=== PATIENT | male | born 1980 | race Caucasian/White ===

== ENCOUNTER → 2018-07-16 09:08 | Outpatient (CLI) | payer MEDICARE, BC, SELFPAY ==
--- NOTE | 2018-07-16 09:09 | US_ITS ---
US abdomen complete HISTORY: Right upper quadrant pain ITS.REASON: Abd pain ORDERING PHYSICIAN: Kayode Adame PATIENT AGE: 38 years COMPARISON: None FINDINGS: PANCREAS:Unremarkable. No obvious mass or abnormal fluid collection. No ductal dilatation LIVER:No focal liver lesions demonstrated. Homogeneous echogenicity. No intrahepatic biliary ductal dilatation evident. There is some heterogeneous areas of increased echogenicity consistent with fatty liver involvement RIGHT KIDNEY:Unremarkable. Normal size and echogenicity. No hydronephrosis LEFT KIDNEY:Unremarkable. No hydronephrosis. Normal size and echogenicity. GALLBLADDER:Sludge is present in the gallbladder. No shadowing stones, pericholecystic fluid, gallbladder wall thickening, or biliary dilatation AORTA:No evidence of aneurysmal dilatation. SPLEEN:Mild splenomegaly at 15 cm ASCITES:None demonstrated. IMPRESSION: 1. Gallbladder sludge. No shadowing stones. 2. Mild splenomegaly
== END ==
PROVIDERS: PCP Emergency Medicine; Visit Provider Nurse Practitioner Family
DX: R10.9 Unspecified abdominal pain (principal)
CPT/HCPCS: 76700

== ENCOUNTER → 2019-10-26 15:33 | Outpatient (CLI) | payer MEDICARE, BC, SELFPAY ==
[2019-10-26 15:47] LABS: Basophils # 0.1 K/mm3 (0-0.2); Basophils % 1.5 % (0.1-2.0); Eosinophils # 0.1 K/mm3 (0.0-0.4); Eosinophils % 2.8 % (0.1-12.0); Hematocrit 49.6 % (42.0-52.0); Hemoglobin 16.8 g/dL (14.1-18.0); Lymphocytes # 1.9 K/mm3 (0.7-4.5); Lymphocytes % 37.8 % (10-50); Mean Corpuscular HGB Conc 33.9 g/dL (31.8-35.4); Mean Corpuscular Hemoglobin 32.6 pg (27.0-31.2); Mean Corpuscular Volume 96.1 fl (80-94); Monocytes # 0.3 K/mm3 (0.1-1.0); Monocytes % 6.1 % (1.7-9.3); Neutrophils # 2.6 K/mm3 (1.8-7.8); Neutrophils % 51.9 % (37.0-80.0); Platelet Count 87 K/mm3 (142-424); Red Blood Count 5.16 M/mm3 (4.60-6.20); Red Cell Distribution Width 13.4 % (11.5-17.5)
[2019-10-26 16:05] LABS: Alanine Aminotransferase 181 U/L (12-78); Albumin Level 5.4 g/dl (3.5-5.0); Albumin/Globulin Ratio 1.2 (1.1-1.8); Alkaline Phosphatase 105 U/L (38-126); Anion Gap 12.8 mEq/L (5-15); Aspartate Amino Transferase 137 U/L (17-59); Bilirubin,Total 0.8 mg/dl (0.2-1.3); Blood Urea Nitrogen 9 mg/dl (9-20); Calcium 9.7 mg/dl (8.4-10.2); Carbon Dioxide 28 mmol/L (22.0-30.0); Chloride 102 mmol/L (98-107); Chol/HDL Ratio 4.3 (1-3.5); Cholesterol 213 mg/dl (140-200); Estimated Glomerular Filt Rate 124 ml/min (>60); GFR (African American) 150 ML/MIN (>60); Globulin 4.5 g/dL (1.3-3.2); Glucose 116 mg/dl (74-100); HDL Cholesterol 50 mg/dl (40-60); Potassium 3.8 mmoL/L (3.5-5.1); Sodium 139 mmol/L (136-145); Total Protein,Serum 9.9 g/dl (6.3-8.2); Triglycerides 128 mg/dl (30-150); VLDL Cholesterol 26 mg/dL (0-40)
[2019-10-26 16:36] LABS: Thyroid Stimulating Hormone 2.48 uIU/mL (0.465-4.68)
[2019-10-28 20:31] LABS: Vitamin D 25 Hydroxy 21.5 ng/mL (30.0-100.0)
== END ==
PROVIDERS: Visit Provider Nurse Practitioner Family
DX: R10.9 Unspecified abdominal pain (principal); Z01.89 Encounter for other specified special examinations; R53.83 Other fatigue; E66.9 Obesity, unspecified; E55.9 Vitamin D deficiency, unspecified
CPT/HCPCS: 80053; 80061; 82652; 84436; 84443; 85025

== ENCOUNTER → 2019-11-11 07:47 | Outpatient (CLI) | payer MEDICARE, BC, SELFPAY ==
--- NOTE | 2019-11-11 07:47 | US_ITS ---
PROCEDURE: US GALLBLADDER CLINICAL INDICATION: RUQ Pain COMPARISON: No exams were available for comparison FINDINGS: Pancreas: Unremarkable/Not well seen Liver: Unremarkable. There is appropriate direction of blood flow within a non dilated portal vein. Right kidney: Unremarkable appearing. No hydronephrosis. Gallbladder: Gallbladder is contracted with mildly thickened wall. No gallstones, pericholecystic fluid, or biliary dilatation is evident. The gallbladder wall measures 5 mm. IMPRESSION: Contracted gallbladder with mildly thickened wall otherwise negative right upper quadrant ultrasound Dictated by: Chidi Khoury MD 11/11/2019 16:42 Electronically signed by Chidi Khoury MD in [place] 11/11/2019 16:42
== END ==
PROVIDERS: PCP Emergency Medicine; Visit Provider Nurse Practitioner Family
DX: R10.11 Right upper quadrant pain (principal)
CPT/HCPCS: 76705

== ENCOUNTER 2019-11-16 20:36 | Emergency (ER) | payer MEDICARE, BC, SELFPAY ==
[2019-11-16 20:37] VITALS: BP 139/71; PULSE 60; RESP 16; TEMP 36.8; O2SAT 98; BMI 29.9
[2019-11-16 21:06] VITALS: PULSE 65; RESP 16; O2SAT 100; BMI 29.9
[2019-11-16 21:17] VITALS: BP 139/71; PULSE 65; RESP 16; TEMP 36.8; O2SAT 100
== END 2019-11-16 21:18 | disposition home or self-care (01) ==
PROVIDERS: Emergency Provider Nurse Practitioner; PCP Emergency Medicine
DX: Z53.21 Procedure and treatment not carried out due to patient leaving prior to being seen by health care provider (principal); R11.0 Nausea

== ENCOUNTER → 2020-01-10 15:54 | Outpatient (CLI) | payer MEDICARE, BC, SELFPAY ==
[2020-01-10 16:48] LABS: Basophils % 0.4 % (0.1-2.0); Eosinophils # 0.1 K/mm3 (0.0-0.4); Eosinophils % 1.5 % (0.1-12.0); Hematocrit 41.9 % (42.0-52.0); Hemoglobin 14.8 g/dL (14.1-18.0); Lymphocytes # 2.2 K/mm3 (0.7-4.5); Mean Corpuscular HGB Conc 35.4 g/dL (31.8-35.4); Mean Corpuscular Hemoglobin 33.8 pg (27.0-31.2); Mean Corpuscular Volume 95.6 fl (80-94); Mean Platelet Volume 8.5 fl (7.4-10.4); Monocytes # 0.6 K/mm3 (0.1-1.0); Neutrophils # 5.2 K/mm3 (1.8-7.8); Neutrophils % 64.1 % (37.0-80.0); Platelet Count 135 K/mm3 (142-424); Red Blood Count 4.39 M/mm3 (4.60-6.20); Red Cell Distribution Width 12.8 % (11.5-17.5); White Blood Count 8.2 K/mm3 (4.8-10.8)
[2020-01-10 17:27] LABS: Alanine Aminotransferase 38 U/L (12-78); Albumin Level 4.2 g/dl (3.5-5.0); Albumin/Globulin Ratio 1.1 (1.1-1.8); Alkaline Phosphatase 109 U/L (38-126); Amylase 69 U/L (30-110); Anion Gap 16.3 mEq/L (5-15); Aspartate Amino Transferase 41 U/L (17-59); Blood Urea Nitrogen 8 mg/dl (9-20); Calcium 8.7 mg/dl (8.4-10.2); Carbon Dioxide 30 mmol/L (22.0-30.0); Chloride 96 mmol/L (98-107); Estimated Glomerular Filt Rate 183 ml/min (>60); GFR (African American) 222 ML/MIN (>60); Globulin 3.9 g/dL (1.3-3.2); Glucose 90 mg/dl (74-100); Lipase 78 U/L (23-300); Potassium 4.3 mmoL/L (3.5-5.1); Sodium 138 mmol/L (136-145); Total Protein,Serum 8.1 g/dl (6.3-8.2)
[2020-01-10 17:40] LABS: Free T4 (Free Thyroxine) 1.48 ng/dl (0.78-2.19)
[2020-01-12 10:15] LABS: Hep A Ab, IgM Negative (Negative); Hep A Ab, Total Negative (Negative); Hep B Core Ab, Total Positive (Negative)
[2020-01-12 11:20] LABS: Hep B Surface Ab, Qual Non Reactive (.)
== END ==
PROVIDERS: Visit Provider Emergency Medicine
DX: E07.9 Disorder of thyroid, unspecified (principal); R10.9 Unspecified abdominal pain
CPT/HCPCS: 36415; 80053; 82150; 83690; 84439; 85025; 86704; 86706; 86708; 87522

== ENCOUNTER → 2020-01-16 10:17 | Outpatient (CLI) | payer MEDICARE, BC, SELFPAY ==
--- NOTE | 2020-01-16 10:42 | HMH.ITSHM ---
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 []PANTOPRAZOLE LEVETIRACETAM GABAPENTIN DOCUSATE VITAMIN D3 BUPRENORPHINE
== END ==
PROVIDERS: PCP Emergency Medicine; Visit Provider Emergency Medicine
DX: R10.11 Right upper quadrant pain (principal)

== ENCOUNTER 2020-01-18 11:20 | Emergency (ER) | payer MEDICARE, BC, SELFPAY ==
[2020-01-18 11:35] VITALS: BMI 30.2
--- NOTE | 2020-01-18 11:36 | CT_ITS ---
PROCEDURE: CT ABDOMEN PELVIS W CON CLINICAL INDICATION: abd pain Right-sided abdominal COMPARISON: CT ABDPELWO CT abdomen pelvis wo con from 07/10/2018 US US GALLBLADDER from 11/11/2019 TECHNIQUE: IV Contrast: 75ML OPTIRAY 350 Oral Contrast None Axial images obtained with sagittal and coronal reformats. All CT scans at the facility use one or more dose reduction, viz: automated exposure control, ma/kV adjustment per patient size (including targeted exams where dose is matched to indication, i.e. head), or iterative reconstruction technique. FINDINGS: LOWER THORAX: There are atelectatic changes in the right lung base with consolidation in the right lower lobe posteriorly consistent with pneumonia. Minimal atelectasis also noted in the left lower lobe ABDOMEN & PELVIS: The liver, gallbladder, spleen, adrenal glands, pancreas, and kidneys have an unremarkable appearance. There are scattered mildly prominent lymph nodes in the upper abdomen in the perigastric region which measure up to 1.5 by 1 cm. Periportal nodes are present and measure up to 2.4 x 1.5 cm. The pancreas has an unremarkable appearance. No evidence of appendicitis. There is a mild amount of retained colonic feces. There are fluid-filled loops of small bowel which are nondistended. This is nonspecific and could be seen with enteritis. No pelvic mass or abnormal fluid collection. No acute bony findings. IMPRESSION: 1. Periportal adenopathy. Etiology is undetermined lymphoma, metastatic disease, or inflammatory/reactive process is considered. Follow-up is suggested. 2. Right lower lobe pneumonia. 3. Possible enteritis Dictated by: Chidi Khoury MD 01/18/2020 12:52 Chidi Khoury MD in [place] 01/18/2020 12:52
[2020-01-18 11:37] VITALS: BP 141/89; PULSE 75; RESP 17; TEMP 36.9; O2SAT 98; BMI 30.2
--- NOTE | 2020-01-18 11:37 | PC.NURSE ---
notified rad of CT order with IV contrast, spoke with Rosmery
[2020-01-18 11:40] LABS: Microscopic, Urine URINE MICROSCOPIC (MICROSCOPIC)
[2020-01-18 11:43] LABS: Appearance,Urine CLEAR (Clear); Bilirubin,Urine Negative (Negative); Blood, Urine Negative (Negative); Color,Urine YELLOW (Yellow); Glucose,Urine (UA) Negative (Negative); Ketones,Urine Negative (Negative); Leukocyte Esterase,Urine Negative (Negative); Nitrate,Urine Negative (Negative); PH,Urine 7.5 (5.0-8.5); Protein,Urine Negative (Negative)
--- NOTE | 2020-01-18 11:59 | PC.NURSE ---
pt to radiology
--- NOTE | 2020-01-18 12:00 | HMH.EDABDPAI ---
ED Disposition Clinical Impression: Abdominal pain Qualifiers: Abdominal location: right lower quadrant Qualified Code(s): R10.31 - Right lower quadrant pain Pneumonia Qualifiers: Pneumonia type: due to unspecified organism Laterality: right Lung location: lower lobe of lung Qualified Code(s): J18.9 - Pneumonia, unspecified organism Disposition: Home, Self-Care Condition on Discharge: Fair Instructions: DI for Acute Abdomen, Pneumonia-Adult Additional Instructions: work-up showed normal CBC and CMP however CRP is elevated at 80.3; urinalysis is negative; CT of the abdomen and pelvis showed right lower lobe pneumonia and periportal adenopathy; etiology is undetermined lymphoma with metastatic disease or inflammatory/reactive processes to be considered; spoke to Dr. Gaines and is advised that you may go home and to follow-up with Dr. Gaines on Thursday will prescribe Levaquin as there is suspicion of right lower lobe pneumonia Prescriptions: levoFLOXacin [Levaquin 500mg tab] 500 mg PO DAILY #7 tab Transmission Status: Pending to [facility] Referrals: Freddy Gaines MD [Primary Care Provider] - Forms: Work/School Release Time of Disposition: 14:20 - Critical Care Critical Care Time: No Attestation: On 01/18/20, the high probability of a clinically significant, sudden or life threatening deterioration of the following system(s) required my full and direct attention, intervention and personal management. The time I documented below is in addition to time spent performing reported procedures but includes the following listed in this critical care notation. Medical Decision Making - Medical Records Medical records reviewed: Yes: I reviewed the patient's medical records. MR Comment: Complaint of right lower quadrant quadrant abdominal pain for several months work-up showed normal CBC and CMP however CRP is elevated at 80.3; urinalysis is negative; CT of the abdomen and pelvis showed right lower lobe pneumonia and periportal adenopathy; etiology is undetermined lymphoma with metastatic disease or inflammatory/reactive processes to be considered; spoke to Dr. Gaines and is advised that he he may go home and to follow-up with Dr. Gaines on Thursday will prescribe Levaquin as he has suspicion of right lower lobe pneumonia - Juan Jose Inquiry Pt receiving controlled substance: No Vital Signs: 01/18/20 11:37 Temperature 98.4 F Temperature Source Oral Pulse Rate [Right Brachial] 75 Respiratory Rate 17 Blood Pressure [Right Arm] 141/89 H Blood Pressure Mean [Right Arm] 106 02 Sat by Pulse Oximetry 98 Oxygen Delivery Method Room Air - Lab Data Lab results reviewed: Yes: I reviewed the patient's lab results. Lab Results 01/18/20 11:30: Urine Color Yellow, Urine Appearance Clear, Urine pH 7.5, Ur Specific [place] 1.010, Urine Protein Negative, Urine Glucose (UA) Negative, Urine Ketones Negative, Urine Blood Negative, Urine Nitrate Negative, Urine Bilirubin Negative, Urine Urobilinogen 1.0, Ur Leukocyte Esterase Negative, Urine WBC Occasional, Urine Bacteria Trace 01/18/20 12:20: WBC 6.4, RBC 4.39 L, Hgb 14.7, Hct 43.0, MCV 97.9 H, MCH 33.6 H, MCHC 34.3, RDW 12.7, Plt Count 141 L, MPV 8.0, Neut % (Auto) 64.6, Lymph % (Auto) 25.6, Daniels % (Auto) 8.0, Eos % (Auto) 1.2, Baso % (Auto) 0.6, Neut # (Auto) 4.1, Lymph # (Auto) 1.6, [place] # (Auto) 0.5, Eos # (Auto) 0.1, Baso # (Auto) 0.0 01/18/20 12:20: Sodium 138, Potassium 4.0, Chloride 100, Carbon Dioxide 30, Anion Gap 12.0, BUN 6 L, Creatinine 0.60 L, Estimated Creat Clear 189, Estimated GFR 148, Est GFR ( Amer) 180, Glucose 97, Calcium 9.0, Total Bilirubin 0.9, AST 35, ALT 32, Alkaline Phosphatase 103, Total Protein 8.3 H, Albumin 4.1, Globulin 4.2 H, Albumin/Globulin Ratio 1.0 L, Amylase 58, Lipase 52 01/18/20 12:20: Lactate 1.1 01/18/20 12:20: C-Reactive Protein 80.3 H Result diagrams: 01/18/20 12:20 01/18/20 12:20 Orders (Tests/Meds): ED MEDICATIONS G
[2020-01-18 12:13] LABS: Bacteria,Urine Trace /lpf; WBC,Urine Occasional #/hpf (0-3)
[2020-01-18 12:30] LABS: Basophils % 0.6 % (0.1-2.0); Eosinophils # 0.1 K/mm3 (0.0-0.4); Eosinophils % 1.2 % (0.1-12.0); Hemoglobin 14.7 g/dL (14.1-18.0); Lymphocytes # 1.6 K/mm3 (0.7-4.5); Lymphocytes % 25.6 % (10-50); Mean Corpuscular HGB Conc 34.3 g/dL (31.8-35.4); Mean Corpuscular Hemoglobin 33.6 pg (27.0-31.2); Mean Corpuscular Volume 97.9 fl (80-94); Monocytes # 0.5 K/mm3 (0.1-1.0); Neutrophils # 4.1 K/mm3 (1.8-7.8); Neutrophils % 64.6 % (37.0-80.0); Platelet Count 141 K/mm3 (142-424); Red Blood Count 4.39 M/mm3 (4.60-6.20); Red Cell Distribution Width 12.7 % (11.5-17.5); White Blood Count 6.4 K/mm3 (4.8-10.8)
[2020-01-18 12:34] LABS: Chloride 100 mmol/L (98-107); Sodium 138 mmol/L (136-145)
[2020-01-18 12:37] LABS: Alanine Aminotransferase 32 U/L (12-78); Amylase 58 U/L (30-110); Aspartate Amino Transferase 35 U/L (17-59); Blood Urea Nitrogen 6 mg/dl (9-20); Creatinine Clearance Estimated 189 mL/min (50-200); Estimated Glomerular Filt Rate 148 ml/min (>60); GFR (African American) 180 ML/MIN (>60)
[2020-01-18 12:38] LABS: Albumin Level 4.1 g/dl (3.5-5.0); Alkaline Phosphatase 103 U/L (38-126); Bilirubin,Total 0.9 mg/dl (0.2-1.3); Carbon Dioxide 30 mmol/L (22.0-30.0); Globulin 4.2 g/dL (1.3-3.2); Glucose 97 mg/dl (74-100); Lipase 52 U/L (23-300); Total Protein,Serum 8.3 g/dl (6.3-8.2)
[2020-01-18 12:42] LABS: Lactic Acid 1.1 mmol/L (0.7-2.1)
[2020-01-18 14:00] LABS: C-Reactive Protein 80.3 mg/L (0-4)
--- NOTE | 2020-01-18 14:08 | PC.NURSE ---
KEYONA MENDOZA speaking with Dr. Gaines
[2020-01-18 14:39] VITALS: BP 107/73; PULSE 62; RESP 18; TEMP 36.9; O2SAT 98
[2020-01-18 14:40] LABS: Erythrocyte Sedimentation Rate 58 mm/hr (0-15)
[2020-01-23 11:16] LABS: Levetiracetam (Keppra) <1.0 ug/mL (10.0-40.0)
== END 2020-01-18 14:39 | disposition home or self-care (01) ==
PROVIDERS: Emergency Provider Emergency Medicine; PCP Emergency Medicine
DX: J18.9 Pneumonia, unspecified organism (principal); F17.210 Nicotine dependence, cigarettes, uncomplicated; R10.31 Right lower quadrant pain
CPT/HCPCS: 36415; 74177; 80053; 80177; 81001; 82150; 83605; 83690; 85025; 85651; 86140; 99283; Q9967

== ENCOUNTER → 2020-01-19 14:55 | Outpatient (CLI) | payer MEDICARE, BC, SELFPAY ==
--- NOTE | 2020-01-19 15:02 | CT_ITS ---
PROCEDURE: CT ANGIO CHEST CLINCIAL INDICATION: RULE OUT PE Pain on breathing COMPARISON: No exams were available for comparison TECHNIQUE: IV Contrast: 70ML OPTIRAY 350 Axial images obtained with sagittal and coronal reformats. All CT scans at the facility use one or more dose reduction, viz: automated exposure control, ma/kV adjustment per patient size (including targeted exams where dose is matched to indication, i.e. head), or iterative reconstruction technique. FINDINGS: HEART AND MEDIASTINAL STRUCTURES: No evidence of aortic aneurysm, dissection, or pulmonary embolus. There are scattered small nodes in the supraclavicular region, axilla, and mediastinum. LUNGS AND PLEURAL SPACES: There are atelectatic changes in the lung bases. This is more extensive on the right than the left BONY STRUCTURES: There is severe wedge compression changes of T7 with loss of height anteriorly of greater than 50 percent. This may be chronic however, the age is uncertain.. There is mild wedging of T6 and T5. UPPER ABDOMEN: Periportal adenopathy once again noted. ADDITIONAL FINDINGS: No other significant abnormalities. IMPRESSION: 1. No evidence of pulmonary embolus. 2. Bilateral lower lobe atelectatic changes 3. Severe wedging of T7 with mild wedging of T5 and T6 age indeterminate. 4. Periportal adenopathy Dictated by: Chidi Khoury MD 01/19/2020 16:58 Chidi Khoury MD in [place] 01/19/2020 16:58
== END ==
PROVIDERS: PCP Emergency Medicine; Visit Provider Internal Medicine Medical Oncology
DX: R10.11 Right upper quadrant pain (principal)
CPT/HCPCS: 71275; Q9967

== ENCOUNTER 2021-01-07 18:56 | Emergency (ER) | payer MEDICARE, BC, SELFPAY ==
[2021-01-07 19:06] VITALS: BP 158/94; PULSE 63; RESP 16; TEMP 36.5; O2SAT 98; BMI 31.4
--- NOTE | 2021-01-07 19:21 | HMH.EDGENADL ---
ED Disposition Clinical Impression: Cellulitis Qualifiers: Site of cellulitis: extremity Site of cellulitis of extremity: lower extremity Laterality: left Qualified Code(s): L03.116 - Cellulitis of left lower limb Disposition: Home, Self-Care Condition on Discharge: Good Instructions: Cellulitis Additional Instructions: Return to the emergency department if you feel worse in any way. Follow-up with your primary care physician in approximately 5 days if you do not see any improvement. Prescriptions: Sulfamethoxazole/Trimethoprim [Bactrim DS tablet] 2 each PO BID 10 Days #40 tab Transmission Status: Pending to [id number] Referrals: Freddy Gaines MD [Primary Care Provider] - - Critical Care Critical Care Time: No Attestation: On 01/07/21, the high probability of a clinically significant, sudden or life threatening deterioration of the following system(s) required my full and direct attention, intervention and personal management. The time I documented below is in addition to time spent performing reported procedures but includes the following listed in this critical care notation. Medical Decision Making - Medical Records Medical records reviewed: Yes: I reviewed the patient's medical records. - Juan Jose Inquiry Pt receiving controlled substance: No Vital Signs: 01/07/21 19:06 Temperature 97.7 F Temperature Source Oral Pulse Rate [Right] 63 Respiratory Rate 16 Blood Pressure [Right Arm] 158/94 H Blood Pressure Mean [Right Arm] 115 Blood Pressure Source [Right Arm] Automatic Cuff Blood Pressure Position [Right Arm] Sitting 02 Sat by Pulse Oximetry 98 Oxygen Delivery Method Room Air Medical Decision Narrative: The patient's history and physical exam are consistent with a cellulitis of the left knee. The patient will be discharged in stable condition without work-up and with a prescription for Bactrim double strength 2 tablets twice a day for 10 days. General Adult HPI - General Chief complaint: Skin/Abscess/Foreign Body Stated complaint: Pain L knee Time Seen by Provider: 01/07/21 19:21 Mode of Arrival: Ambulatory Limitations: No Limitations Description of Symptoms (Recalled from ER Triage Doc. by RN): Pt has a red swollen area to left knee for three days and more painfull today. - History of Present Illness HPI narrative: The patient presents to the emergency department complaining of left-sided knee pain and redness for the last 2 days. He denies any fevers. He denies any injury. - Related Data Home Medications Medication Instructions Recorded Confirmed buprenorphine HCl 8 mg sublingual 8 mg SUBLINGUAL BID tab 06/05/17 10/16/20 tablet Previous Rx's Medication Instructions Recorded cholecalciferol (vitamin D3) 50 50 mcg PO DAILY #30 cap 10/10/20 mcg (2,000 unit) capsule docusate sodium 100 mg capsule 100 mg PO BID 30 Days #60 cap 10/10/20 gabapentin 600 mg tablet 600 mg PO BID #60 tab 10/10/20 levetiracetam 500 mg tablet See Rx Instructions .ROUTE 10/10/20 .COMPLEX #90 tab pantoprazole 40 mg tablet,delayed See Rx Instructions .ROUTE 10/10/20 release .COMPLEX #90 tab fluticasone propionate 50 1 spray INTRANASAL DAILY #16 g 10/16/20 mcg/actuation nasal spray,suspension [id number] 3.5 4 drp OTIC TID 10 Days #10 ml 10/16/20 mg-10,000 unit/mL-1 % ear drops,susp pseudoephedrine HCl 120 mg 120 mg PO Q12H PRN #20 tab 10/16/20 tablet,extended release Sulfamethoxazole/Trimethoprim 2 each PO BID 10 Days #40 tab 01/07/21 [Bactrim DS tablet] Allergies Allergy/AdvReac Type Severity Reaction Status Date / Time No Known Allergies Allergy Verified 10/16/20 15:00 [facility] History - Hepatitis A Screen Drug use history?: No High risk sexual behaviors?: No History of sexually transmitted infection?: No Currently employed?: No Childcare worker?: No Do you have indoor plumbing?: Yes Do you have electricity?: Yes [facility]
[2021-01-07 19:37] VITALS: BP 125/86; PULSE 63; RESP 18; TEMP 36.5; O2SAT 97
== END 2021-01-07 19:39 | disposition home or self-care (01) ==
PROVIDERS: Emergency Provider Emergency Medicine; PCP Emergency Medicine
DX: L03.116 Cellulitis of left lower limb (principal)
CPT/HCPCS: 99281

== ENCOUNTER 2021-04-26 08:56 | Emergency (ER) | payer MEDICARE, BC, SELFPAY ==
[2021-04-26 08:57] VITALS: BP 115/74; PULSE 67; RESP 18; TEMP 36.6; O2SAT 97; BMI 31.6
[2021-04-26 09:04] VITALS: BP 115/74; PULSE 62; RESP 18; TEMP 36.8; O2SAT 97
[2021-04-26 09:30] VITALS: BP 122/75; PULSE 60; O2SAT 96
--- NOTE | 2021-04-26 10:08 | HMH.EDGENADL ---
ED Disposition Clinical Impression: Abscess of nose Disposition: Home, Self-Care Condition on Discharge: Fair Instructions: DI for Skin Abscess Additional Instructions: Take clindamycin as prescribed. Tylenol or ibuprofen as needed for pain. Warm compresses 20 minutes 4 times a day. Follow-up with the ENT, next week. Call Thursday to make appointment. Return to the emergency department if increasing redness, pain, swelling, or fever. Prescriptions: clindamycin HCL [Clindamycin HCl] 300 mg PO QID #28 cap Transmission Status: Pending to [facility] Referrals: Freddy Gaines MD [Primary Care Provider] - - Critical Care Critical Care Time: No Attestation: On 04/26/21, the high probability of a clinically significant, sudden or life threatening deterioration of the following system(s) required my full and direct attention, intervention and personal management. The time I documented below is in addition to time spent performing reported procedures but includes the following listed in this critical care notation. Medical Decision Making - Juan Jose Inquiry Pt receiving controlled substance: No Vital Signs: 04/26/21 08:57 04/26/21 09:04 04/26/21 09:30 Temperature 97.8 F 98.2 F Temperature Source Oral Oral Pulse Rate 62 60 Pulse Rate [Right Radial] 67 Respiratory Rate 18 18 Blood Pressure 115/74 122/75 Blood Pressure [Right Arm] 115/74 Blood Pressure Mean [Right Arm] 87 Blood Pressure Source Automatic Cuff Blood Pressure Source [Right Arm] Automatic Cuff Blood Pressure Position Sitting Blood Pressure Position [Right Arm] Sitting 02 Sat by Pulse Oximetry 97 97 96 Oxygen Delivery Method Room Air Room Air Room Air Orders (Tests/Meds): ED MEDICATIONS Discontinued Medications Generic Name Dose Route Start Last Admin Trade Name Freq PRN Reason Stop Dose Admin Clindamycin HCl 300 mg 04/26/21 10:30 Clindamycin 150mg Capsule PO 04/26/21 10:31 ONCE ONE Medical Decision Narrative: Discussed treatment with antibiotics versus I&D and antibiotics. I explained the patient I was not convinced that any pus could be obtained given his examination which largely shows induration and no significant fluctuant areas. He is very insistent that an incision and drainage be attempted. General Adult HPI - General Chief complaint: Skin/Abscess/Foreign Body Stated complaint: nose swollen/red sore Time Seen by Provider: 04/26/21 09:15 Mode of Arrival: Ambulatory Limitations: No Limitations Description of Symptoms (Recalled from ER Triage Doc. by RN): pt reports the tip of his nose is sore, red and swollen x4 days. Pt states no known injury. - History of Present Illness HPI narrative: 4-day history of swollen red nose. No fever. No drainage of pus. It started just inside the anterior portion of his left nostril and now involves the tip of his nose as well. - Related Data Home Medications Medication Instructions Recorded Confirmed buprenorphine HCl 8 mg sublingual 8 mg SUBLINGUAL BID tab 06/05/17 04/26/21 tablet Gabapentin 600 mg PO BID 04/26/21 04/26/21 Previous Rx's Medication Instructions Recorded cholecalciferol (vitamin D3) 50 50 mcg PO DAILY #30 cap 02/19/21 mcg (2,000 unit) capsule docusate sodium 100 mg capsule 100 mg PO BID 30 Days #60 cap 02/19/21 fluticasone propionate 50 1 spray INTRANASAL DAILY #16 g 02/19/21 mcg/actuation nasal spray,suspension levetiracetam 500 mg tablet See Rx Instructions .ROUTE 02/19/21 .COMPLEX #90 tab pantoprazole 40 mg tablet,delayed See Rx Instructions .ROUTE 02/19/21 release .COMPLEX #90 tab clindamycin HCL [Clindamycin HCl] 300 mg PO QID #28 cap 04/26/21 Allergies Allergy/AdvReac Type Severity Reaction Status Date / Time No Known Allergies Allergy Verified 02/19/21 10:45 [facility] History - Hepatitis A Screen Drug use history?: No High risk sexual behaviors?: No History
[2021-04-26 11:06] VITALS: BP 122/75; PULSE 60; RESP 18; TEMP 36.8; O2SAT 96
== END 2021-04-26 11:06 | disposition home or self-care (01) ==
PROVIDERS: Emergency Provider Emergency Medicine; PCP Emergency Medicine
DX: J34.0 Abscess, furuncle and carbuncle of nose (principal); F17.210 Nicotine dependence, cigarettes, uncomplicated
CPT/HCPCS: 10060; 99282

== ENCOUNTER 2022-01-14 11:55 | Emergency (ER) | payer MEDICARE, BC, SELFPAY ==
[2022-01-14] VITALS (8 sets, daily range): BP systolic 102–153; BP diastolic 62–89; PULSE 50–68; RESP 16; TEMP 36.6–36.8; O2SAT 95–99; BMI 28.3
--- NOTE | 2022-01-14 12:37 | HMH.EDGENADL ---
ED Disposition Clinical Impression: Mastoiditis, Otitis media Disposition: Home, Self-Care Condition on Discharge: Good Additional Instructions: At this time it was felt you are safe to be discharged from the emergency department. If new or worsening symptoms please do not hesitate to return for continued evaluation. Please take your antibiotics as prescribed. Please follow-up with Dr. Lima. The address is [address] in [facility]. The phone number should you get lost is [phone]. The clinic opens at 7:30 AM. Prescriptions: Amoxicillin/Potassium Clav [Augmentin 500mg tab] 1 tab PO TID 7 Days #21 tab Transmission Status: Pending to [facility] Referrals: Freddy Gaines MD [Primary Care Provider] - - Critical Care Critical Care Time: No Attestation: On 01/14/22, the high probability of a clinically significant, sudden or life threatening deterioration of the following system(s) required my full and direct attention, intervention and personal management. The time I documented below is in addition to time spent performing reported procedures but includes the following listed in this critical care notation. Medical Decision Making - Juan Jose Inquiry Pt receiving controlled substance: No Vital Signs: 01/14/22 11:56 01/14/22 13:30 01/14/22 13:56 Temperature 98.3 F Temperature Source Oral Pulse Rate 68 53 L Pulse Rate [Right] 56 L Respiratory Rate 16 16 Blood Pressure 126/75 126/75 Blood Pressure [Right Arm] 153/89 H Blood Pressure Mean 94 Blood Pressure Mean [Right Arm] 110 Blood Pressure Source Automatic Cuff Blood Pressure Source [Right Arm] Automatic Cuff Blood Pressure Position Sitting Blood Pressure Position [Right Arm] Sitting 02 Sat by Pulse Oximetry 99 98 97 Oxygen Delivery Method Room Air Room Air 01/14/22 14:00 01/14/22 14:30 01/14/22 15:00 Temperature Temperature Source Pulse Rate 51 L 50 L 64 Pulse Rate [Right] Respiratory Rate Blood Pressure 126/81 106/62 L 111/81 Blood Pressure [Right Arm] Blood Pressure Mean 97 79 90 Blood Pressure Mean [Right Arm] Blood Pressure Source Blood Pressure Source [Right Arm] Blood Pressure Position Blood Pressure Position [Right Arm] 02 Sat by Pulse Oximetry 98 95 98 Oxygen Delivery Method 01/14/22 15:30 Temperature Temperature Source Pulse Rate 62 Pulse Rate [Right] Respiratory Rate Blood Pressure 102/73 L Blood Pressure [Right Arm] Blood Pressure Mean 83 Blood Pressure Mean [Right Arm] Blood Pressure Source Blood Pressure Source [Right Arm] Blood Pressure Position Blood Pressure Position [Right Arm] 02 Sat by Pulse Oximetry 97 Oxygen Delivery Method - Lab Data Lab Results 01/14/22 12:40: WBC 6.1, RBC 4.78, Hgb 15.4, Hct 48.3, MCV 100.9 H, MCH 32.1 H, MCHC 31.8, RDW 13.2, Plt Count 124 L, MPV 9.9, Neut % (Auto) 39.2, Lymph % (Auto) 45.3, [place] % (Auto) 9.0, Eos % (Auto) 5.1, Baso % (Auto) 1.5, Neut # (Auto) 2.4, Lymph # (Auto) 2.7, [place] # (Auto) 0.6, Eos # (Auto) 0.3, Baso # (Auto) 0.1 01/14/22 12:40: Sodium 142, Potassium 4.1, Chloride 103, Carbon Dioxide 32 H, Anion Gap 11.1, BUN 6 L, Creatinine 0.60 L, Estimated Creat Clear 173, Estimated GFR 147, Est GFR ( Amer) 178, Glucose 105 H, Calcium 9.1, C-Reactive Protein 3.9 01/14/22 12:40: SARS-CoV-2 (PCR) Not detected, Influenza A Untype (PCR) Not detected, Influenza Type B (PCR) Not detected Result diagrams: 01/14/22 12:40 01/14/22 12:40 Orders (Tests/Meds): ED MEDICATIONS Generic Name Dose Route Start Last Admin Trade Name Freq PRN Reason Stop Dose Admin Vancomycin/PEG/NADA/Lysine/Water 1.5 gm in 300 mls @ 150 mls/hr 01/14/22 16:30 Vancomycin 1.5gm/300ml (Peg) Premix IV 01/14/22 18:29 ONCE ONE Vancomycin HCl 1,000 mg/ 250 mls @ 125 mls/hr 01/15/22 02:00 Sodium Chloride IV 01/29/22 01:59 Q8H SUSU Miscellaneous 1 each 01/14/22 16:30 Vanc
--- NOTE | 2022-01-14 12:38 | CT_ITS ---
FINAL REPORT TECHNIQUE: Thin section axial CT images of the facial bones and sinuses were obtained after the administration contrast. Coronal reformatted images were also obtained. This study was performed with techniques to keep radiation doses as low as reasonably achievable, (ALARA). Individualized dose reduction techniques using automated exposure control or adjustment of mA and/or kV according to the patient's size were employed. CLINICAL HISTORY: RETROARTICULAR PAIN W/ D/C COMPARISON: April 12, 2018 FINDINGS: CT FACIAL BONES/SINUSES WITH CONTRAST There is opacification of the left ethmoid air cells. There is mucosal thickening of the left frontal sinus and mild mucosal thickening in the bilateral maxillary sinuses and left sphenoid sinus. No fluid levels are identified. There is narrowing of the right maxillary sinus ostium secondary to mucosal thickening. There is soft tissue which obstructs the left maxillary sinus ostium and infundibulum. There is a right ino bullosa as a variant. There is leftward nasal septal deviation with a left-sided nasal septal spur. No fracture or acute bony abnormality is identified. There are postoperative changes from left mastoidectomy. There is opacification of the left mastoid antrum and partial opacification of the left middle ear cavity which is new and is worrisome for left mastoiditis/otitis media. There is soft tissue in the bilateral auditory canal of uncertain etiology. IMPRESSION: Sinusitis as described. Opacification of the left mastoid antrum and partial opacification of the left middle ear cavity which is new and worrisome for left mastoiditis/otitis media. Reviewed, Interpreted and Dictated by Harman Shah III, MD Transcribed by Kiersten Sanderson Authenticated and [facility]
[2022-01-14 12:59] LABS: Coronavirus 19, PCR Not Detected (NotDetected); Influenza A, PCR Not Detected (NotDetected); Influenza B, PCR Not Detected (NotDetected)
[2022-01-14 13:26] LABS: Chloride 103 mmol/L (98-107); Potassium 4.1 mmoL/L (3.5-5.1); Sodium 142 mmol/L (136-145)
[2022-01-14 13:27] LABS: Basophils # 0.1 K/mm3 (0-0.2); Basophils % 1.5 % (0.1-2.0); Eosinophils # 0.3 K/mm3 (0.0-0.4); Eosinophils % 5.1 % (0.1-12.0); Hematocrit 48.3 % (42.0-52.0); Hemoglobin 15.4 g/dL (14.1-18.0); Lymphocytes # 2.7 K/mm3 (0.7-4.5); Lymphocytes % 45.3 % (10-50); Mean Corpuscular HGB Conc 31.8 g/dL (31.8-35.4); Mean Corpuscular Hemoglobin 32.1 pg (27.0-31.2); Mean Corpuscular Volume 100.9 fl (80-94); Mean Platelet Volume 9.9 fl (7.4-10.4); Monocytes # 0.6 K/mm3 (0.1-1.0); Neutrophils # 2.4 K/mm3 (1.8-7.8); Neutrophils % 39.2 % (37.0-80.0); Platelet Count 124 K/mm3 (142-424); Red Blood Count 4.78 M/mm3 (4.60-6.20); Red Cell Distribution Width 13.2 % (11.5-17.5); White Blood Count 6.1 K/mm3 (4.8-10.8)
[2022-01-14 13:29] LABS: Blood Urea Nitrogen 6 mg/dl (9-20); Creatinine Clearance Estimated 173 mL/min (50-200); Estimated Glomerular Filt Rate 147 ml/min (>60); GFR (African American) 178 ML/MIN (>60)
[2022-01-14 13:30] LABS: Anion Gap 11.1 mEq/L (5-15); Calcium 9.1 mg/dl (8.4-10.2); Carbon Dioxide 32 mmol/L (22.0-30.0); Glucose 105 mg/dl (74-100)
[2022-01-14 13:35] LABS: C-Reactive Protein 3.9 mg/L (0-4)
--- NOTE | 2022-01-14 13:37 | PC.NURSE ---
Pt to CT
--- NOTE | 2022-01-14 13:57 | PC.NURSE ---
Rounded on pt a the time. Explained wait times for CT reads, pt resting in bed and agreeable with POC. No new needs at this time and call light within reach
--- NOTE | 2022-01-14 16:14 | PC.NURSE ---
ER MD at speaking with patient regarding update on test results/POC
--- NOTE | 2022-01-14 16:17 | PC.NURSE ---
Contacting [facility] for ER MD at this time. ENT in [facility] has already left for the day.
--- NOTE | 2022-01-14 16:29 | PC.NURSE ---
KEYONA MENDOZA speaking with Dr Lima, ENT with at this time
--- NOTE | 2022-01-14 16:42 | PC.NURSE ---
after speaking with Dr Lima ENT at he is gonna follow up with him in their clinic tomorrow , Dr Lima did not want the vanc. so order was cancelled and meds wasted
== END 2022-01-14 16:55 | disposition home or self-care (01) ==
PROVIDERS: Emergency Provider Emergency Medicine; PCP Emergency Medicine
DX: H70.92 Unspecified mastoiditis, left ear (principal); H66.92 Otitis media, unspecified, left ear; R51.9 Headache, unspecified; J98.4 Other disorders of lung; G62.9 Polyneuropathy, unspecified; G40.909 Epilepsy, unspecified, not intractable, without status epilepticus; F17.210 Nicotine dependence, cigarettes, uncomplicated; Z79.51 Long term (current) use of inhaled steroids; Z20.822 Contact with and (suspected) exposure to COVID-19; Z82.49 Family history of ischemic heart disease and other diseases of the circulatory system; Z83.3 Family history of diabetes mellitus
CPT/HCPCS: 70487; 80048; 85025; 86140; 99285; C9803; Q9967; U0003; U0005

== ENCOUNTER → 2022-09-08 10:30 | Outpatient (CLI) | payer MEDICARE, BC, SELFPAY ==
[2022-09-08 16:47] LABS: Phencyclidine Screen,Urine Negative ng/ml (<25)
[2022-09-08 16:56] LABS: Amphetamine/Metha Screen,Urine Positive ng/ml (<1000)
[2022-09-08 16:58] LABS: Cannabinoid Screen,Urine Negative ng/ml (<50)
[2022-09-08 16:59] LABS: Barbiturates Screen,Urine Negative ng/ml (<200); Benzodiazepines Screen,Urine Negative ng/ml (<200)
[2022-09-08 17:00] LABS: Methadone Screen,Urine Negative ng/ml (<300)
[2022-09-08 17:01] LABS: Cocaine Screen,Urine Negative ng/ml (<300); Opiate Screen,Urine Negative ng/ml (<300)
== END ==
PROVIDERS: PCP Emergency Medicine; Visit Provider Emergency Medicine
DX: Z79.899 Other long term (current) drug therapy (principal)
CPT/HCPCS: 80305

== ENCOUNTER → 2022-10-17 09:55 | Outpatient (CLI) | payer MEDICARE, BC, SELFPAY ==
[2022-10-17 15:22] LABS: Amphetamine/Metha Screen,Urine Positive ng/ml (<1000); Barbiturates Screen,Urine Negative ng/ml (<200)
[2022-10-17 15:23] LABS: Benzodiazepines Screen,Urine Negative ng/ml (<200)
[2022-10-17 15:24] LABS: Cannabinoid Screen,Urine Negative ng/ml (<50)
[2022-10-17 15:25] LABS: Cocaine Screen,Urine Negative ng/ml (<300)
[2022-10-17 15:26] LABS: Methadone Screen,Urine Negative ng/ml (<300); Opiate Screen,Urine Negative ng/ml (<300)
[2022-10-17 15:27] LABS: Phencyclidine Screen,Urine Negative ng/ml (<25)
== END ==
PROVIDERS: PCP Emergency Medicine; Visit Provider Emergency Medicine
DX: Z79.899 Other long term (current) drug therapy (principal)
CPT/HCPCS: 80305

== ENCOUNTER → 2023-02-26 23:34 | Outpatient (CLI) | payer MEDICARE, BC, SELFPAY ==
[2023-02-26 19:22] LABS: Cholesterol 193 mg/dl (140-200); HDL Cholesterol 32 mg/dl (40-60); Triglycerides 138 mg/dl (30-150); VLDL Cholesterol 28 mg/dL (0-40)
[2023-02-26 19:34] LABS: Direct LDL Cholesterol 120.66 mg/dL (100-129)
[2023-02-26 19:53] LABS: Thyroid Stimulating Hormone 2.38 uIU/mL (0.465-4.68)
== END ==
PROVIDERS: PCP Emergency Medicine; Visit Provider Internal Medicine
DX: E11.9 Type 2 diabetes mellitus without complications (principal); Z00.00 Encounter for general adult medical examination without abnormal findings
CPT/HCPCS: 80061; 84443

== ENCOUNTER 2023-05-03 18:01 | Emergency (ER) | payer MEDICARE, BC, SELFPAY ==
--- NOTE | 2023-05-03 18:00 | ECG_ITS ---
APPROVED REPORT Exam: Resting ECG HR:71 bpm ECG Measurements Heart Rate 71 AXES OR 130 P 44 QRSd 109 QRS 28 QT 401 T 44 QTc 424 Conclusion SINUS RHYTHM MINIMAL ST DEPRESSION [0.025+ mV ST DEPRESSION] BORDERLINE ECG UNCONFIRMED REPORT Electronically signed by : Carlos Valentine MD 05/04/2023 17:37:47
[2023-05-03 18:01] VITALS: BP 139/88; PULSE 74; RESP 18; TEMP 36.7; O2SAT 100; BMI 31.1
--- NOTE | 2023-05-03 18:19 | PC.NURSE ---
DR HANSEN AT BEDSIDE
--- NOTE | 2023-05-03 18:22 | XR_ITS ---
PROCEDURE INFORMATION: Exam: XR Chest Exam date and time: 05/03/2023 6:57 PM Age: 43 years old Clinical indication: Pain; Chest pressure; Additional info: Dyspnea TECHNIQUE: Imaging protocol: Radiologic exam of the chest. Views: 1 view. COMPARISON: CT ANGIO CHEST 01/19/2020 4:32 PM FINDINGS: Lungs: No evidence of acute pulmonary disease or infiltrates; lung [place] appear clear. Pleural spaces: No evidence of pleural effusion, pneumothorax, or pleural thickening in the visualized pleural spaces. Heart/Mediastinum: No evidence of mediastinal widening or cardiac silhouette enlargement; the mediastinum and heart appear within normal limits for contour and size. Bones/joints: No evidence of acute osseous abnormalities within the visualized portions of the thoracic spine and ribs. Osseous structures appear appropriate for patient age. IMPRESSION: Negative study. No acute cardiopulmonary abnormalities identified.
--- NOTE | 2023-05-03 18:23 | HMH.EDGENADL ---
Discharge Plan Disposition Patient Disposition: Home, Self-Care Prescriptions Prescriptions: No Action buprenorphine-naloxone 8-2 mg tablet, sublingual 1 tab sublingual Patient Comments: DISSOLVE 2 TABLETS UNDER THE TONGUE ONCE DAILY docusate sodium 100 mg capsule 100 mg PO BID 30 Days Qty: 60 1RF tretinoin 0.025 % cream topical cholecalciferol (vitamin D3) 50 mcg (2,000 unit) capsule 50 mcg PO DAILY Qty: 30 2RF fluticasone propionate [Flonase Allergy Relief] 50 mcg/actuation spray,suspension 1 spray INTRANASAL DAILY Qty: 16 2RF Rx Instructions: administer into each nostril gabapentin 600 mg tablet 600 mg PO BID 30 Days Qty: 60 1RF levetiracetam 500 mg tablet 500 mg PO DAILY 30 Days Qty: 30 3RF pantoprazole 40 mg tablet,delayed release (DR/EC) 40 mg PO DAILY 30 Days Qty: 30 6RF dextroamphetamine-amphetamine [Adderall XR] 15 mg capsule,extended release 24hr 15 mg PO DAILY 30 Days Qty: 30 0RF Referrals Follow up/Referrals: Provider,Referral, MD [Primary Care Provider] - See instructions Activity Restrictions/Add. Instructions Additional Instructions/Restrictions: No evidence of acute cardiopulmonary emergency. Your symptoms are not consistent with acute surgical emergency. Please continue to follow-up with primary care doctor to have further discussions if your symptoms continue. Clinical Impressions Clinical Impression: Epigastric abdominal pain Discharge ED Provider: Jose Hood General Adult HPI General Chief complaint: Chest Pain Stated complaint: CP Time Seen by Provider: 05/03/23 18:18 Mode of Arrival: Ambulatory Source of Information: Patient Limitations: No Limitations Description of Symptoms (Recalled from ER Triage Doc. by RN): PT REPORTS MIDSTERNAL CHEST PAIN, KNOT IN MY CHEST X 2 WEEKS. REPORTS NAUSEA AND SHORTNESS OF BREATH History of Present Illness HPI narrative: Patient is a 43-year-old male presented today with chest pain. States that this has been ongoing and unchanged for 2 weeks. No exertional component no shortness of breath. Does state this gets worse with eating. States that once he started having this discomfort he felt his chest where the pain was located and he felt a knot. Pointing to the inferior most aspect of his sternum when he points to this area. Does not have any history of pancreatitis that he is aware of. No radiation to his back. No known cardiopulmonary disease. Related Data Home Medications Medication Instructions Recorded Confirmed buprenorphine 8 mg-naloxone 2 mg 1 tab sublingual 10/17/22 02/26/23 sublingual tablet tretinoin 0.025 % topical cream applic topical 02/26/23 02/26/23 Previous Rx's Medication Instructions Recorded docusate sodium 100 mg capsule 100 mg PO BID 30 days #60 caps 02/19/21 cholecalciferol (vitamin D3) 50 50 mcg PO DAILY #30 caps 02/26/23 mcg (2,000 unit) capsule fluticasone propionate 50 1 spray intranasal DAILY #16 grams 02/26/23 mcg/actuation nasal spray,suspension (Flonase Allergy Relief) gabapentin 600 mg tablet 600 mg PO BID Pain 30 days #60 tabs 02/26/23 levetiracetam 500 mg tablet 500 mg PO DAILY seizures 30 days 02/26/23 #30 tabs pantoprazole 40 mg tablet,delayed 40 mg PO DAILY 30 days #30 tabs 02/26/23 release dextroamphetamine-amphetamine ER 15 mg PO DAILY ADHD 30 days #30 04/01/23 15 mg 24hr capsule,extend release caps (Adderall XR) Allergies Allergy/AdvReac Type Severity Reaction Status Date / Time No Known Allergies Allergy Verified 02/26/23 10:23 [facility] Disclaimer: The information contained in this section may have been updated after the patient was seen, as this information can be updated by other users. Social History Smoking Status: Current every day smoker tobacco type: cigarettes packs per day: 1 second hand exposure: No alcohol intake: never sub
[2023-05-03 18:32] LABS: Basophils # 0.1 K/mm3 (0-0.2); Basophils % 0.7 % (0.1-2.0); Eosinophils # 0.3 K/mm3 (0.0-0.4); Eosinophils % 4.3 % (0.1-12.0); Hematocrit 43.2 % (42.0-52.0); Lymphocytes # 2.7 K/mm3 (0.7-4.5); Lymphocytes % 39.1 % (10-50); Mean Corpuscular HGB Conc 34.7 g/dL (31.8-35.4); Mean Corpuscular Hemoglobin 32.6 pg (27.0-31.2); Mean Corpuscular Volume 93.8 fl (80-94); Mean Platelet Volume 8.8 fl (7.4-10.4); Monocytes # 0.5 K/mm3 (0.1-1.0); Monocytes % 6.8 % (1.7-9.3); Neutrophils # 3.3 K/mm3 (1.8-7.8); Neutrophils % 49.2 % (37.0-80.0); Platelet Count 170 K/mm3 (142-424); Red Cell Distribution Width 12.5 % (11.5-17.5); White Blood Count 6.8 K/mm3 (4.8-10.8)
[2023-05-03 18:33] LABS: Chloride 101 mmol/L (98-107); Potassium 3.5 mmoL/L (3.5-5.1); Sodium 139 mmol/L (136-145)
[2023-05-03 18:36] LABS: Alanine Aminotransferase 25 U/L (12-78); Albumin Level 4.6 g/dl (3.5-5.0); Albumin/Globulin Ratio 1.1 (1.1-1.8); Alkaline Phosphatase 80 U/L (38-126); Anion Gap 11.5 mEq/L (5-15); Aspartate Amino Transferase 31 U/L (17-59); Bilirubin,Total 0.6 mg/dl (0.2-1.3); Blood Urea Nitrogen 6 mg/dl (9-20); Calcium 8.3 mg/dl (8.4-10.2); Carbon Dioxide 30 mmol/L (22.0-30.0); Creatinine Clearance Estimated 140 mL/min (50-200); Estimated Glomerular Filt Rate 105 ml/min (>60); GFR (African American) 126 ML/MIN (>60); Globulin 4.2 g/dL (1.3-3.2); Glucose 117 mg/dl (74-100); Lipase 59 U/L (23-300); Total Protein,Serum 8.8 g/dl (6.3-8.2)
[2023-05-03 18:59] LABS: Troponin I < 0.01 ng/ml (0.00-0.034)
[2023-05-03 19:11] VITALS: BP 121/86; PULSE 68; RESP 18; TEMP 36.7; O2SAT 100
== END 2023-05-03 19:17 | disposition home or self-care (01) ==
PROVIDERS: Emergency Provider Student in an Organized Health Care Education/Training Program
DX: R07.9 Chest pain, unspecified (principal); R10.13 Epigastric pain; F17.210 Nicotine dependence, cigarettes, uncomplicated
CPT/HCPCS: 71045; 80053; 83690; 84484; 85025; 93005; 99285

== ENCOUNTER 2023-07-30 22:32 | Outpatient (CLI) | payer MEDICARE, BC, SELFPAY ==
[2023-07-30 19:51] LABS: 25-OH Vitamin D, Total 23.6 ng/mL (30-100)
== END 2023-07-30 23:59 ==
PROVIDERS: PCP Internal Medicine; Visit Provider Internal Medicine
DX: E55.9 Vitamin D deficiency, unspecified (principal); Z79.899 Other long term (current) drug therapy
CPT/HCPCS: 82306

== ENCOUNTER 2023-11-16 16:12 | Emergency (ER) | payer MEDICARE, BC, SELFPAY ==
[2023-11-16 16:14] VITALS: BP 117/77; PULSE 74; RESP 13; TEMP 36.9; O2SAT 97; BMI 29.9
[2023-11-16 16:31] VITALS: BP 117/77; PULSE 66; O2SAT 95
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
[2023-11-16 17:02] VITALS: BP 114/77; PULSE 69; O2SAT 97
[2023-11-16] MEDS: KETOROLAC 30MG/ML VIAL 15 MG IM (17:12)
--- NOTE | 2023-11-16 17:43 | PC.NURSE ---
DR THAYER AT BEDSIDE TO UPDATE PT
[2023-11-16 17:44] VITALS: BP 118/82; PULSE 65; RESP 16; TEMP 36.6; O2SAT 99
== END 2023-11-16 17:48 | disposition home or self-care (01) ==
PROVIDERS: Emergency Provider Emergency Medicine; PCP Internal Medicine
DX: S06.0X0A Concussion without loss of consciousness, initial encounter (principal); R42 Dizziness and giddiness; W20.8XXA Other cause of strike by thrown, projected or falling object, initial encounter; F17.210 Nicotine dependence, cigarettes, uncomplicated
CPT/HCPCS: 70450; 96372; 96374; 99284; J1885

== ENCOUNTER 2023-12-24 09:25 | Outpatient (CLI) | payer MEDICARE, BC, SELFPAY ==
[2023-12-24 18:30] LABS: Chol/HDL Ratio 6.9 (1-3.5); Cholesterol 213 mg/dl (140-200); HDL Cholesterol 31 mg/dl (40-60); Triglycerides 210 mg/dl (30-150); VLDL Cholesterol 42 mg/dL (0-40)
[2023-12-24 18:43] LABS: Direct LDL Cholesterol 144.14 mg/dL (100-129)
[2023-12-24 20:12] LABS: Hemoglobin A1C 5.2 % (4.0-6.0)
[2023-12-24 20:53] LABS: 25-OH Vitamin D, Total 38.6 ng/mL (30-100)
== END 2023-12-24 23:59 | disposition home or self-care (01) ==
LOC: LAB.DROPOF 12-25 09:26
PROVIDERS: PCP Internal Medicine; Visit Provider Internal Medicine
DX: E11.9 Type 2 diabetes mellitus without complications (principal); E78.5 Hyperlipidemia, unspecified; E55.9 Vitamin D deficiency, unspecified
CPT/HCPCS: 80061; 82306; 83036

== ENCOUNTER 2024-05-10 07:06 | Outpatient (CLI) | payer MEDICARE, BC, SELFPAY ==
--- NOTE | 2024-05-10 07:09 | CT_ITS ---
FINAL REPORT TECHNIQUE: Axial CT images of the abdomen were obtained without contrast. Coronal and sagittal reformatted images were also obtained.This study was performed with techniques to keep radiation doses as low as reasonably achievable (ALARA). Individualized dose reduction techniques using automated exposure control or adjustment of mA and/or kV according to the patient's size were employed. CLINICAL HISTORY: periportal adenopathy COMPARISON: None FINDINGS: The lung bases are clear. The liver has an abnormal morphology, worrisome for cirrhosis. Mild gallbladder wall thickening is present, nonspecific. There is no evidence of biliary ductal dilatation. The pancreas appears normal. The spleen size is within normal limits, specifically no splenomegaly is noted. There is no evidence of renal stone or hydronephrosis. Periportal lymph nodes present, nonspecific, borderline in size and mildly enlarged. One of the larger nodes measure 17 mm in diameter. Favor reactive. Mild vascular calcifications are noted. The appendix is normal in appearance. No abnormal fluid collection is seen. No localized inflammatory processes identified. IMPRESSION: Abnormal morphology of the liver, most worrisome for cirrhosis. Multiple borderline in size and slightly enlarged periportal nodes are noted, one of the largest measuring 17 mm in diameter. This is a nonspecific finding, and favor reactive. Mild gallbladder wall thickening, also nonspecific. Reviewed, Interpreted and Dictated by Harman Shah III, MD Transcribed by Elizabeth Hitchcock Authenticated and [facility]
[2024-05-10 08:36] LABS: Chol/HDL Ratio 6.1 (1-3.5); Cholesterol 182 mg/dl (140-200); HDL Cholesterol 30 mg/dl (40-60); Triglycerides 198 mg/dl (30-150); VLDL Cholesterol 40 mg/dL (0-40)
[2024-05-10 08:47] LABS: Direct LDL Cholesterol 102.69 mg/dL (100-129)
== END 2024-05-10 23:59 | disposition home or self-care (01) ==
LOC: RAD 07:07
PROVIDERS: PCP Internal Medicine; Visit Provider Internal Medicine
DX: R59.9 Enlarged lymph nodes, unspecified (principal); R59.0 Localized enlarged lymph nodes; E78.5 Hyperlipidemia, unspecified
CPT/HCPCS: 36415; 74150; 80061

== ENCOUNTER 2025-01-30 15:45 | Emergency (ER) | payer MEDICARE, MEDICAID, SELFPAY ==
[2025-01-30 16:05] VITALS: BP 134/76; PULSE 63; RESP 18; TEMP 36.7; O2SAT 98; BMI 29.9
--- OUTSIDE RECORDS SUMMARY | 2025-01-30 16:14 | XMS_ITS | Encounter Summary ---
Author Organization [facility] Address [address] [place] [address] Care Team Providers Care Materials Supervisor Name Role Phone Freddy Gaines MD Primary Care Provider [phone] Reason for Referral * Consultation (Routine) - Closed Specialty Diagnoses / Procedures Referred By Contac t Referred To Contact Otolaryngology Diagnoses Mastoiditis, unspecified laterality Chronic otitis media, unspecified otitis media type Freddy Gaines MD [address] [place] [phone] Phone: tel: fax: Referral ID Status Reason Start Date Expiration Date V isits Requested Visits Authorized [id number] Closed Specialty Services Required 03/04/2022 09/03/2023 1 1 Encounter Details Date Type Department Care Team (Late st Contact Info) Description 03/04/2022 Community [facility] [address] [place] [address] Freddy Gaines MD [address] [place] [address] Mastoiditis, unspecified laterality (Primary Dx); Chronic otitis media, unspecified otitis media type Social History Tobacco Use Types Packs/Day Years Used Date Smoking Tobacco: Every Day Cigarettes 1 28 Smokeless Tobacco: Never Alcohol Use Standard Drinks/Week Comments Not Currently 0 (1 standard drink = 0.6 oz pur e alcohol) Sex and Gender Information Value Date Recorded Sex Assigned at Male 05/17/2023 8:52 PM EST Legal Sex Male 6:42 PM EDT Gender Identity Male 05/17/2023 8:52 PM EST Sexual Orientation Not on file COVID-19 Exposure Response Date Recorded In the last 10 days, have yo u been in contact with someone who was confirmed or suspected to have Coronavirus/COVID-19? No / Unsure 02/19/2022 1:16 PM EDT documented as of this encounter Plan of Treatment Scheduled Referrals Name Type Priority Associated Diagnoses Orde r Schedule Ambulatory Referral to ENT Outpatient Referral Routine Mastoiditis, unspecified laterality Chronic otitis media, unspecified otitis media type Expected: 03/04/2022 (Approximate), Expires: 05/04/2022 documented as of this encounter Visit Diagnoses Diagnosis Mastoiditis, unspecified laterality- Primary Chronic otitis media, unspecified otitis media type documented in this encounter Care Teams Materials Supervisor Relationship Specialty Start Date End Date Freddy Gaines MD [address] [place] [address] PCP - General 02/11/22 documented as of this encounter
--- OUTSIDE RECORDS SUMMARY | 2025-01-30 16:14 | XMS_ITS | Clinical Summary ---
Author Organization Healthcare Address [address] [place] [address] Care Team Providers Care Web Design Intern Name Role Phone Freddy Gaines MD Primary Care Provider [phone] Allergies No known active allergies Medications fluticasone (Flonase) 50 MCG/ACT nasal spray Administer into each nostril if needed. 1 Active gabapentin (Neurontin) 600 MG tablet Take by mouth 2 (two) times a day. 2 Active levETIRAcetam (Keppra) 500 MG tablet Take by mouth every other day. 1 Active pantoprazole (Protonix) 40 MG EC tablet if needed. 1 Active ofloxacin (Floxin) 0.3 % otic solution Administer 5 drops into the left ear 2 (two) times a day. Do not start using until 7 days after surgery. 10 mL 2 2 Active ciprofloxacin-d examethasone (CiproDEX) otic suspension Apply 4 drops to affected ear twice daily for 21 days 7.5 mL 1 2 Active Active Problems No known active problems Family History Medical History Relation Name Comments Diabetes Father Diabetes Mother Anesthesia problems Neg Hx Malig Hyperthermia Neg Hx Relation Name Status Comments Father Mother Social History Tobacco Use Types Packs/Day Years Used Date Smoking Tobacco: Every Day Cigarettes 1 28 Smokeless Tobacco: Never Tobacco Cessation:Ready to Q uit: Not Asked; Counseling Given: Not Answered Alcohol Use Standard Drinks/Week Comments Not Currently 0 (1 standard drink = 0.6 oz pur e alcohol) Sex and Gender Information Value Date Recorded Sex Assigned at Male 05/17/2023 8:52 PM EST Legal Sex Male 6:42 PM EDT Gender Identity Male 05/17/2023 8:52 PM EST Sexual Orientation Not on file Last Filed Vital Signs Vital Sign Reading Time Taken Comments Blood Pressure 100/65 01/31/2024 5:56 AM EDT Pulse 55 01/31/2024 5:56 AM EDT Temperature 36.6 C (97.8 F) 01/31/2024 5:56 AM EDT Respiratory Rate 18 01/31/2024 5:56 AM EDT Oxygen Saturation 97% 01/31/2024 5:56 AM EDT Inhaled Oxygen Concentration - - Weight 81.6 kg (180 lb) 01/31/2024 2:15 AM EDT Height 165.1 cm (5' 5 ) 04/16/2022 12:15 PM EST Body Mass Index 29.95 04/16/2022 12:15 PM EST Plan of Treatment Health Maintenance Due Date Last Done Comments [facility]-Depression Screening 1978 [facility]-Medicare Annual Wellness (AWV) 1978 [facility]-/Child/Adol SDOH Screenings 1978 [facility]- SDOH Screenings 02/09/1996 [facility]-Adult SDOH Screenings 02/09/1996 [facility]-DTaP,Tdap,and Td Vaccine s (1 - Tdap) 1997 [facility]-Hepatitis B Vaccines (1 of 3 - 19+ 3-dose series) 1997 [facility]-Pneumococcal Vaccine: Pediatrics (0 to 5 Years) and At-Risk Patients (6 to 49 Years) (1 of 2 - PCV) 1997 CT Colonography 2023 Colonoscopy 2023 FIT-DNA 2023 FIT 2023 FOBT 2023 Sigmoidoscopy 2023 [facility]-Colorectal Cancer Screening 2023 NST-NPFSE-64 Vaccine (1 - season) 2024 [facility]-Influenza Vaccine (#1) 2025 [facility]-Zoster Vaccines (1 of 2) 02/09/2028 [facility]-Obesity Intervention Completed 022, 03/17/2022, 02/19/2022 [facility]-HIV Screening Completed 01/31/2024 [facility]-Hepatitis C Screening Completed 01/31/2024 HPV Vaccines Aged Out No longer eligi ble based on patient's age to complete this topic [facility]-HIB Vaccines Aged Out No longer e ligible based on patient's age to complete this topic [facility]-Hepatitis A Vaccines Aged Out No longer eligible based on patient's age to complete this topic [facility]-IPV Vaccines Aged Out No longer e ligible based on patient's age to complete this topic [facility]-Rotavirus Vaccines Aged Out No lo nger eligible based on patient's age to complete this topic Procedures Procedure Name Priority Date/Time Associated Diagnosis Comments HEPATITIS C ANTIBODY - ED W/REFLEX TO HCV QUANT PCR STAT 01/31/2024 4:02 AM EDT ED HIV 1/2 ANTIBODY/ANTIGEN SCREEN WITH REFLEX TO HIV I/II DIFFERENTIATION STAT 01/31/2024 4:02 AM EDT from Last 3 Months or Most Recently Relevant to Health Maintenance Results * ED HIV 1/2 Antibody/Antigen Screen w/Reflex to HIV 1/2 Differentiation (01/31/2024 4:02 AM EDT) HIV 1 & 2 Antibody/Antigen Screen Non Reactive Non Reactive 01/31/2024 5:17 AM EDT [facility] Comment:Screening for HIV 1 & 2 antibodies, and P24 antigen is NONREACTIVE. No confirmatory testing is required. Blood Venous blood specimen / Unknown Venipuncture / Unknown 01/31/2024 4:02 AM EDT 01/31/2024 4:38 AM EDT us Luis Carlos Hull MD LAB BLOOD ORDERABLES Final Re sult [facility] [address] [place] [address] * Hepatitis C Antibody - ED (01/31/2024 4:02 AM EDT) Hepatitis C Antibody Negative Negative 01/31/2024 5:17 AM EDT [facility] Blood Venous blood specimen / Unknown Venipuncture / Unknown 01/31/2024 4:02 AM EDT 01/31/2024 4:38 AM EDT us Luis Carlos Hull MD LAB BLOOD ORDERABLES Final Re sult [facility] [address] [place] [address] from Last 3 Months or Most Recently Relevant to Health Maintenance Insurance MEDICARE Care Teams Web Design Intern Relationship Specialty Start Date End Date Freddy Gaines MD [address] [place] [address] PCP - General 02/11/22
[2025-01-30 16:48] VITALS: BP 144/87; PULSE 65; RESP 18; O2SAT 97
[2025-01-30 17:01] VITALS: BP 151/87; PULSE 61; RESP 16; O2SAT 98
--- NOTE | 2025-01-30 17:06 | CT_ITS ---
PROCEDURE INFORMATION: Exam: CT Abdomen And Pelvis With Contrast Exam date and time: 01/30/2025 6:54 PM Age: 44 years old Clinical indication: Other: Lymphadenopathy TECHNIQUE: Imaging protocol: Computed tomography of the abdomen and pelvis with contrast. Radiation optimization: All CT scans at this facility use at least one of these dose optimization techniques: automated exposure control; mA and/or kV adjustment per patient size (includes targeted exams where dose is matched to clinical indication); or iterative reconstruction. Contrast material: ISOVUE; Contrast volume: 75 ml; Contrast route: IV; COMPARISON: CT ABDOMEN WO CON 05/10/2024 7:16 AM FINDINGS: Liver: Normal. No mass. Gallbladder and biliary ducts: Normal. No calcified stones. No ductal dilation. Pancreas: Normal. No ductal dilation. Spleen: Normal. No splenomegaly. Adrenal glands: Normal. No mass. Kidneys and ureters: Normal. No hydronephrosis. Stomach and bowel: Unremarkable. No obstruction. No mucosal thickening. Appendix: The appendix is visualized and appears normal. Intraperitoneal space: Unremarkable. No free air. No significant fluid collection. Vasculature: Moderate atherosclerotic calcification throughout the abdominal aorta. No evidence of aneurysm or dissection. Lymph nodes: Unremarkable. No enlarged lymph nodes. Urinary bladder: Unremarkable as visualized. Reproductive: Unremarkable as visualized. Bones/joints: Slight grade 1 anterolisthesis of L5. Mild diffuse disc bulge at the lumbosacral junction. No other significant degenerative/arthritic changes. No vertebral body compression. No acute fracture. Soft tissues: Unremarkable. IMPRESSION: No acute abnormality. Incidental chronic findings as noted.
--- NOTE | 2025-01-30 17:06 | CT_ITS ---
PROCEDURE INFORMATION: Exam: CT Chest With Contrast; Diagnostic Exam date and time: 01/30/2025 6:54 PM Age: 44 years old Clinical indication: Other: Lymphadenopathy TECHNIQUE: Imaging protocol: Diagnostic computed tomography of the chest with contrast. Radiation optimization: All CT scans at this facility use at least one of these dose optimization techniques: automated exposure control; mA and/or kV adjustment per patient size (includes targeted exams where dose is matched to clinical indication); or iterative reconstruction. Contrast material: ISOVUE; Contrast volume: 75 ml; Contrast route: IV; COMPARISON: CT ANGIO CHEST 01/19/2020 4:32 PM FINDINGS: Lungs: Unremarkable. No consolidation. No masses. Pleural spaces: Unremarkable. No pneumothorax. No pleural effusion. Heart: Unremarkable. No cardiomegaly. No pericardial effusion. Lymph nodes: Mildly prominent bilateral axillary lymph nodes have slightly increased in size from previous. No significant intrathoracic lymphadenopathy. Vasculature: Unremarkable. No aortic aneurysm. Bones/joints: Chronic appearing compression of the T6 and T7 vertebral bodies. Mild multilevel degenerative disc changes. No acute fracture. Soft tissues: Unremarkable. IMPRESSION: Mild nonspecific bilateral axillary lymphadenopathy. Otherwise unremarkable CT chest
[2025-01-30 17:24] LABS: Hematocrit 44.5 % (42.0-52.0); Hemoglobin 15.5 g/dL (14.1-18.0); Immature Granulocytes % 0.2 %; Mean Corpuscular HGB Conc 34.8 g/dL (31.8-35.4); Mean Corpuscular Hemoglobin 32.2 pg (27.0-31.2); Mean Corpuscular Volume 92.5 fl (80-94); Nucleated Red Blood Cells % 0 %; Platelet Count 138 K/mm3 (142-424); Red Blood Count 4.81 M/mm3 (4.60-6.20); Red Cell Distribution Width-SD 42.9 fL; White Blood Count 5.1 K/mm3 (4.8-10.8)
[2025-01-30 17:33] LABS: Chloride 103 mmol/L (98-107)
[2025-01-30 17:34] LABS: Albumin Level 4.9 g/dl (3.5-5.0); Potassium 3.6 mmoL/L (3.5-5.1); Sodium 141 mmol/L (136-145)
[2025-01-30 17:37] LABS: Alanine Aminotransferase 22 U/L (12-78); Albumin/Globulin Ratio 1.0 (1.1-1.8); Alkaline Phosphatase 65 U/L (38-126); Anion Gap 11.6 mEq/L (5-15); Aspartate Amino Transferase 44 U/L (17-59); Bilirubin,Total 0.5 mg/dl (0.2-1.3); Blood Urea Nitrogen 9 mg/dl (9-20); Calcium 9.2 mg/dl (8.4-10.2); Carbon Dioxide 30 mmol/L (22.0-30.0); Creatinine Clearance Estimated 152 mL/min (50-200); Creatinine,Serum 0.70 mg/dl (0.66-1.25); Estimated Glomerular Filt Rate 121 ml/min (>60); GFR (African American) 147 ML/MIN (>60); Globulin 4.7 g/dL (1.3-3.2); Glucose 82 mg/dl (74-100); Magnesium 1.8 mg/dl (1.6-2.3); Total Protein,Serum 9.6 g/dl (6.3-8.2)
[2025-01-30 17:48] VITALS: BP 139/88; PULSE 55; O2SAT 98
[2025-01-30 18:00] VITALS: BP 133/80; PULSE 60; O2SAT 97
[2025-01-30] MEDS: IOPAMIDOL-370 (76%);100ML BOTTLE 75 ML IV (18:54)
[2025-01-30] MEDS: SODIUM CHLORIDE 0.9% 10ML SYR (RAD ONLY) 10 ML IV (18:54)
--- NOTE | 2025-01-30 20:03 | ED_ITS ---
<Statement entered by Juice Ndiaye MD - 01/30/25 23:12> I was consulted by the SALLY, and we discussed the complexity of the problems being addressed. I approved the treatment and management plan for this patient's care in the emergency department, thus performing a substantive portion of the medical decision making. Hematologic labs reviewed by me and are nonactionable. CT imaging was discussed with the patient. Appropriate for follow-up on an outpatient basis with the heme-onc. Juice Ndiaye MD Discharge Plan Disposition Patient Disposition: Home, Self-Care Condition: Good Prescriptions Prescriptions: New imiquimod 5 % cream in packet See Rx Instructions .ROUTE .COMPLEX Qty: 24 0RF Rx Instructions: Apply a thin layer 3 times per week (on alternate days) prior to bedtime; leave on skin for 6 to 10 hours, then remove with mild soap and water. Continue until there is total clearance of the genital/perianal warts or for a maximum duration of therapy of 16 weeks. No Action buprenorphine-naloxone 8-2 mg tablet, sublingual 1 tab sublingual Patient Comments: DISSOLVE 2 TABLETS UNDER THE TONGUE ONCE DAILY docusate sodium 100 mg capsule 100 mg PO BID 30 Days Qty: 60 1RF atorvastatin [Lipitor] 10 mg tablet 10 mg PO HS Qty: 30 2RF gabapentin 600 mg tablet 600 mg PO TID 30 Days Qty: 90 1RF levetiracetam 500 mg tablet 500 mg PO DAILY 90 Days Qty: 90 3RF pantoprazole 40 mg tablet,delayed release (DR/EC) 40 mg PO DAILY 30 Days Qty: 30 6RF gabapentin 600 mg tablet 600 mg PO TID 30 Days Qty: 90 1RF dextroamphetamine-amphetamine [Adderall XR] 30 mg capsule,extended release 24hr 30 mg PO DAILY 30 Days Qty: 30 0RF Referrals Follow up/Referrals: Freddy Paulson MD [Staff Physician, Oncology] - See instructions Carlos Joyner MD [Primary Care Provider, Family Practice] - See instructions Activity Restrictions/Add. Instructions Additional Instructions/Restrictions: You were seen for enlarged lymph nodes in the axilla (arm pit). Please see Dr. Paulson for more workup. For your neuropathy please see Dr. Joyner. Please use the prescribed cream for the warts, follow up with Dr. Joyner. Return to ER for any worsening. Clinical Impressions Clinical Impression: Neuropathy, Adenopathy, Condyloma Instructions Patient Instructions: Genital Warts, DI for Lymphadenopathy Print Language Print Language: Welsh Discharge ED Provider: Juice Ndiaye General Adult HPI General Chief complaint: PAIN Stated complaint: Pain in hand and arms,bumps over body Time Seen by Provider: 01/30/25 16:11 Mode of Arrival: Ambulatory Source of Information: Patient Description of Symptoms (Recalled from ER Triage Doc. by RN): Pt presents for evaluation of multiple complaints. Pt states he is having throbbing pain and tingling to bilateral hands x 1 week, and has a rash to bilateral arm pits and right groin. History of Present Illness HPI narrative: Patient presents complaining of bilateral upper extremity tingling and throbbing. Symptoms have been ongoing for 1 week. He does take gabapentin. He reports the symptoms are constant in the left upper extremity and intermittent in the right. Denies any neck injury or pain. He reports that the symptoms are in all 5 of his fingers. He also reports some knots that he feels in his bilateral axillas and in the groin area. MD complaint: tingling Onset (ago): week(s) (1) Location: upper extremity Radiation: extremity (elbows) Severity: mild Quality: other (Throbbing) Consistency: constant Relieving factors: none Exacerbating factors: none Associated symptoms: denies other symptoms Related Data Home Medications ?Medication ?Instructions ?Recorded ?Confirmed buprenorphine 8 mg-naloxone 2 mg 1 tab sublingual 09/2911/24/24 sublingual tablet Previous Rx's ?Medication ?Instructions ?Recorded docusate sodium 100 mg capsule 100 mg PO BID 30 days # 60 caps 02/19/21 atorvastatin 10 mg tablet (Lipitor) 10 mg PO HS #30 ta bs 01/04/24 gabapentin 600 mg tablet 600 mg PO TID Pain 30 days # 90 tabs 07/11/24 levetiracetam 500 mg tablet 500 mg PO DAILY seizures 9 0 days 09/16/24 #90 tabs pantoprazole 40 mg tablet,delayed 40 mg PO DAILY 30 da ys #30 tabs 09/16/24 release gabapentin 600 mg tablet 600 mg PO TID Pain 30 days # 90 tabs 01/05/25 dextroamphetamine-amphetamine ER 30 mg PO DAILY 30 day s #30 caps 01/16/25 30 mg 24hr capsule,extend release (Adderall XR) imiquimod 5 % topical cream packet See Rx Instructions .Route 01/30/25 .COMPLEX #24 ea Allergies Allergy/AdvReac Type Severity Reaction Status Date / Time No Known Allergies Allergy Verified 11/24/24 10:28 [facility] Disclaimer: The information contained in this section may have been updated after the patient was seen, as this information can be updated by other users. Medical History (Updated 01/30/25 @ 20:00 by SHAUN Cheng) Colon cancer screening Hyperlipidemia Seizure disorder Learning disability Encounter for monitoring Suboxone maintenance therapy ADHD Social History Smoking Status: Current every day smoker tobacco type: cigarettes packs per day: 1 second hand exposure: No alcohol intake: never substance use type: heroin and opiates current occupational status: unemployed Travel in the last 8 weeks?: None household members: children housing: apartment Have you lived/traveled outside US in past 30 days?: No Contact w/someone who lives/traveled outside US past 30 days?: No Exposure to someone with infectious disease in past 14 days?: No Do you have a fever (greater than 100.4 F or 38 C)?: No Have you tested positive for COVID-19?: No Exposed to someone with COVID-19 in past 14 days?: No Do you have a sore throat?: No Do you have a cough?: No Do you have any weakness?: No Do you have any diarrhea?: No Are you experiencing any unusual bleeding?: No Do you have any muscle aches/pain?: No Do you have any abdominal pain?: No Are you experiencing loss of taste or smell?: No Other Medical History Have you received the Flu Vaccine for this season: No Have you received the Pneumonia Vaccine: No ROS Obtained: Yes Systems reviewed as appropriate & no additional complaints except as documented Physical Exam General General appearance: alert and in no apparent distress Head Head exam: atraumatic and normocephalic Eye Eye exam: Present normal appearance and EOMI Chest Chest inspection: Present symmetric chest wall rise Respiratory Respiratory exam: Present normal lung sounds bilaterally; Absent wheezes or stridor Cardiovascular Cardiovascular exam: Present regular rate and normal rhythm; Absent systolic murmur Extremities Exam Extremities exam: Present full ROM Neurological Exam Neurological exam: Present alert, oriented X3, CN II-XII intact and other (Nonfocal neurologic exam); Absent motor sensory deficit Psychiatric Psychiatric exam: Present normal affect and normal mood Skin Skin exam: Present warm, dry, intact and other (Condyloma noted below the scrotum) Lymphatic Lymphatic Findings: L axilla node enlarged and R axilla node enlarged Medical Decision Making Medical Records Screening: Per USPSTF and CDC recommendations, given the prevalence of disease in our region, it is our hospital?s policy to screen for HIV and viral Hepatitis for all patients aged 18 and over and those with ongoing risk factors. Juan Jose Inquiry Pt receiving controlled substance: No Vital Signs: 01/30/25 16:05 01/30/25 16:48 01/30/25 17:01 Temperature 98.1 F Temperature Source Temporal Artery Scan Pulse Rate 65 61 Pulse Rate [Right] 63 Respiratory Rate 18 18 16 Blood Pressure 144/87 H 151/87 H Blood Pressure [Right Arm] 134/76 Blood Pressure Mean 106 104 Blood Pressure Mean [Right Arm] 95 Blood Pressure Source [Right Arm] Automatic Cuff Blood Pressure Position [Right Arm] Sitting 02 Sat by Pulse Oximetry 98 97 98 Oxygen Delivery Method Room Air 01/30/25 17:48 01/30/25 18:00 01/30/25 20:06 Temperature 97.9 F Temperature Source Pulse Rate 55 L 60 60 Pulse Rate [Right] Respiratory Rate 16 Blood Pressure 139/88 133/80 134/82 Blood Pressure [Right Arm] Blood Pressure Mean Blood Pressure Mean [Right Arm] Blood Pressure Source [Right Arm] Blood Pressure Position [Right Arm] 02 Sat by Pulse Oximetry 98 97 Oxygen Delivery Method Room Air Lab Data Lab Results 01/30/25 17:14: WBC 5.1, RBC 4.81, Hgb 15.5, Hct 44.5, MCV 92.5, MCH 32.2 H, MCHC 34.8, RDW 12.4, Plt Count 138 L, MPV 10.4, Neut % (Auto) 37.7, Lymph % (Auto) 50.5 H, Roberts % (Auto) 5.7, Eos % (Auto) 5.5, Baso % (Auto) 0.4, Neut # (Auto) 1.9, Lymph # (Auto) 2.6, Roberts # (Auto) 0.3, Eos # (Auto) 0.3, Baso # (Auto) 0.0, Sodium 141, Potassium 3.6, Chloride 103, Carbon Dioxide 30, Anion Gap 11.6, BUN 9, Creatinine 0.70, Estimated Creat Clear 152, Estimated GFR 121, Est GFR ( Amer) 147, Glucose 82, Calcium 9.2, Magnesium 1.8, Total Bilirubin 0.5, AST 44, ALT 22, Alkaline Phosphatase 65, Total Protein 9.6 H, Albumin 4.9, Globulin 4.7 H, Albumin/Globulin Ratio 1.0 L 01/30/25 17:14 01/30/25 17:14 Orders (Tests/Meds): ED MEDICATIONS Discontinued Medications Generic Name Dose Route Start Last Admin Trade Name Freq PRN Reason Stop Dose Admin Iopamidol 75 ml 01/30/25 18:53 01/30/25 18:54 Iopamidol-370 (76%);100ml Bottle IV 01/30/25 18:54 75 ml ONCE ONE Administration Sodium Chloride 10 ml 01/30/25 18:53 01/30/25 18:54 Sodium Chloride 0.9% 10ml Syr (Rad Only) IV 01/30/25 18:54 10 ml ONCE ONE Administration ORDERS Category Date Time Status CT abdomen pelvis w con Stat Cat Scan 01/30/25 17:[address] chest w con Stat Cat Scan 01/30/25 17:06 Completed CBC w/Auto Diff [Complete Blood Count Auto Diff] Stat Lab 01/30/25 17:14 Completed CMP [Comprehensive Metabolic Panel] Stat Lab 01/30/25 17:14 Completed Magnesium Stat Lab 01/30/25 17:14 Completed Medical Decision Narrative: In summary patient is a 44-year-old who presents the emergency department for evaluation of tingling and throbbing in the upper extremities. Patient is hemodynamically stable upon arrival, afebrile. Mild adenopathy in the bilateral axilla. Differential diagnosis includes lymphadenitis adenopathy, lymphoma, metastatic disease, electrolyte abnormality. Initial workup will be conducted with labs, CT chest abdomen and pelvis. CT reveals adenopathy in the bilateral axillas which has increased. Upon repeat evaluation patient is resting comfortably. Given this patient given follow-up with Dr. Gordillo for further evaluation of the adenopathy. For his neuropathy advised to continue gabapentin and follow-up with his PCP for further workup. Given a topical treatment for condyloma. Advised to follow-up with PCP for this as well. Critical Care Critical Care Time Critical Care Time: No
[2025-01-30 20:06] VITALS: BP 134/82; PULSE 60; RESP 16; TEMP 36.6; O2SAT 97
== END 2025-01-30 20:13 | disposition home or self-care (01) ==
PROVIDERS: Physician Assistant; Emergency Provider Emergency Medicine; PCP Family Medicine
DX: G62.9 Polyneuropathy, unspecified (principal); R59.9 Enlarged lymph nodes, unspecified; M79.641 Pain in right hand; M79.642 Pain in left hand; A63.0 Anogenital (venereal) warts; F17.210 Nicotine dependence, cigarettes, uncomplicated
CPT/HCPCS: 71260; 74177; 80053; 83735; 85025; 99283; 99285; Q9967